=== PATIENT | male | born 1970 | race Caucasian/White ===

== ENCOUNTER 2024-11-09 11:35 | Emergency (ER) | payer BC, OTHER ==
[~2024-11-09] VITALS: Ht 172.7 cm; Wt 129.3 kg
[2024-11-09 11:50] VITALS: TEMP 99
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
[2024-11-09 12:05] VITALS: O2SAT 99
[2024-11-09] MEDS: LORazepam 2MG/ML-1ML VIAL IV ONE (12:12)
[2024-11-09] MEDS: MORPHINE SULFATE 4 MG/ML SYR/VIAL IV ONE (12:12)
[2024-11-09] MEDS: SODIUM CHLORIDE 0.9% 1,000 ML IV ONE (12:17)
[2024-11-09 12:18] LABS: Basophils # (auto) 0.1 10 ^3/uL (0-0.2); Basophils % (auto) 0.9 % (0.0-2.0); Eosinophils # (auto) 0.3 10 ^3/uL (0-0.8); Hematocrit 38.4 % (41.0-53.0); Hemoglobin 13.7 g/dL (13.5-17.5); Lymphocytes # (auto) 2.2 10 ^3/uL (0.4-5.4); Lymphocytes % (auto) 29.3 % (10.0-50.0); Mean Corpuscular Hemoglobin 32.3 pg (28.0-32.0); Mean Corpuscular Hgb Conc. 35.8 g/dL (32.0-36.0); Mean Corpuscular Volume 90.2 fL (80.0-100.0); Monocytes % (auto) 13.5 % (0.0-12.0); Neutrophils # (auto) 3.9 10 ^3/uL (1.6-8.6); Neutrophils % (auto) 52.3 % (37.0-80.0); Nucleated Red Blood Cells % 0.1 %; Platelet Count (auto) 350 10^3/uL (140-450); Red Blood Cells 4.26 10^6/uL (4.5-5.90); Red Cell Distribution Width 13.3 % (11.8-14.3); White Blood Cell 7.4 10^3/uL (4.4-10.8)
[2024-11-09] MEDS: ASPirin 81 mg TAB PO ONE (12:19)
[2024-11-09] MEDS: ONDANSETRON HCL 4 MG/2 ML VIAL IV ONE (12:19)
[2024-11-09] MEDS: NITROGLYCERIN 0.4 MG SL TAB SL ONE (12:25)
[2024-11-09 12:48] LABS: Urine Bacteria None Seen /hpf (None Seen)
[2024-11-09 12:53] LABS: Urine Blood Negative /uL (Negative); Urine Clarity Clear (Clear); Urine Color Colorless (Yellow); Urine Protein, UAD Negative (Negative); Urine Specific Gravity 1.003 (1.001-1.035); Urine Squamous Epithelial Cell None Seen /hpf (<5); Urine Urobilinogen Normal (Negative)
[2024-11-09 12:56] LABS: Urine WBC < 1 /HPF (0-3)
[2024-11-09 13:12] VITALS: BP 90/59; PULSE 75; RESP 24
--- NOTE | 2024-11-10 12:52 | ECG ---
[facility] Test Date: 2024-11-09 Test Time: 11:39:43 Pat Name: WILLIAN GRAHAM Department: ER Room: Gender: M Land Measurer: DIMITRY : 1970 Requested By: CHELI QUINTANILLA Order Number: [id number] Reading MD: Measurements Intervals [place] Rate: 82 P: 57 WY: 163 QRS: 32 QRSD: 94 T: 6 QT: 376 QTc: 439 Interpretive Statements Sinus rhythm Baseline wander in lead(s) V6 Please click the below link to view image of tracing.
== END 2024-11-09 12:05 | disposition left against medical advice (07) ==
LOC: ER 11:35
DX: R07.89 Other chest pain (principal); M79.602 Pain in left arm; M25.512 Pain in left shoulder; I10 Essential (primary) hypertension; I25.2 Old myocardial infarction; E78.5 Hyperlipidemia, unspecified; Z86.73 Personal history of transient ischemic attack (TIA), and cerebral infarction without residual deficits; Z88.0 Allergy status to penicillin; Z88.1 Allergy status to other antibiotic agents; Z88.5 Allergy status to narcotic agent; Z88.8 Allergy status to other drugs, medicaments and biological substances
CPT/HCPCS: 36415; 81001; 84484; 85025; 93005; 96361; 96374; 96375; 99284; J2270; J2405; J7030